=== PATIENT | male | born 1975 | race Caucasian/White ===

== ENCOUNTER → 2019-09-25 | Outpatient (CLI) | payer BC ==
--- NOTE | 2019-09-25 13:43 | RADIOLOGY REPORT (SQ) ---
EXAM DESCRIPTION: MRI RT UPPER JOINT WITHOUT IMAGES COMPLETED DATE/TIME: 09/25/2019 12:36 pm REASON FOR STUDY: STRAIN OF OTHER MUSCLES, FASCIA AND TENDONS AT FOREARM LEVEL (S56.811A) S56.811A STRAIN OF MUSC/FASC/TEND AT FOREARM LEVEL, RIGHT AR COMPARISON: None. TECHNIQUE: Right elbow images acquired and stored on PACS. Multiplanar images to include fat sensit marie sequences as T1, fluid sensitive sequences as T2/STIR, cartilage sensitive sequences as FSPD, and gradient echo sequences. LIMITATIONS: None. FINDINGS: BONE MARROW: No alteration of signal to suggest marrow replacement or edema. No occult fra cture. No large osteophytes. JOINT EFFUSION: None noted. No loose bodies. ARTICULAR SURFACES: Normal. MEDIAL COLLATERAL LIGAMENT COMPLEX: Intact without edema or tear. MEDIAL EPICONDYLE AND COMMON FLEXOR TENDON: No tendinopathy. No partial or full-thickness tear. LATERAL COLLATERAL LIGAMENT: Intact without edema or tear. LATERAL EPICONDYLE AND COMMON EXTENSOR TENDON: No tendinopathy. No partial or full-thickness tear. LATERAL ULNAR COLLATERAL LIGAMENT: Intact without evidence for tear. BICEPS TENDON: Intact. No partial or full-thickness tendon tear. No muscle edema. TRICEPS TENDON: Intact. ULNAR NERVE: Well-visualized without edema or encroachment. ADJACENT SOFT TISSUES: Heterogeneous signal, hyperintense T2 within the pronator teres muscle. Consi stent with strain/partial tear. Adjacent superficial and deep edema along the ulnar aspect of the di stal arm and proximal forearm. OTHER: No other significant finding. IMPRESSION: 1. Significant teres muscle strain. Consistent with at least moderate grade intrasubstance muscle te ar. Associated regional posttraumatic superficial and deep soft tissue edema. 2. Ligaments and tendons intact. TECHNICAL DOCUMENTATION: JOB ID: [id number] 2010 [employer]- All Rights Reserved Reading location - IP/workstation name: [employer]
== END ==
LOC: RAD 11:32
PROVIDERS: ATTEND Family Medicine
DX: S56.811A Strain of other muscles, fascia and tendons at forearm level, right arm, initial encounter (principal); X58.XXXA Exposure to other specified factors, initial encounter

== ENCOUNTER → 2020-01-26 | Outpatient (CLI) | payer BC ==
[2020-01-26 13:48] LABS: ANION GAP 10 (5-19); BLOOD UREA NITROGEN 13 mg/dL (7-20); CALCIUM 9.7 mg/dL (8.4-10.2); CARBON DIOXIDE 28 mmol/L (22-30); CHLORIDE 102 mmol/L (98-107); GLUCOSE 98 mg/dL (75-110); POTASSIUM 3.9 mmol/L (3.6-5.0)
== END ==
LOC: OD 12:28
PROVIDERS: ATTEND Anesthesiology
DX: Z01.812 Encounter for preprocedural laboratory examination (principal)
CPT/HCPCS: 36415; 80048